=== PATIENT | female | born 1940 | race Caucasian/White ===

== ENCOUNTER 2016-09-24 09:04 | Outpatient (CLI) | payer MEDICARE, BC ==
[~2016-09-24] VITALS: Ht 154.9 cm; Wt 84.1 kg
[~2016-09-24 09:04] MED LIST: 00186-0370-20 IH; AMOXICILLIN 50500 MG PO; ASPIRIN 81M81 MG/TA2 PO; ASPIRIN E.C. 8181 MG PO; BENADRYL25 M2 PO; CALCIUM 600 PLU1 TAB PO; CALCIUM WITH VI1 TAB PO; CARDI-OMEGA1000 MG PO; CLARITIN 1010 MG/TAB PO; COREG 6.256.25 MG/TA PO; COVERA-HS180 MG PO; CRESTOR 10MG10 MG PO; DECADRON 4MG TAB4 MG PO; DEEP SEA 45 ML45 ML NS; LEVBID0.375 MG PO; NASACORT AQ N16.5 GM NS; OS-CAL 500 + D1 TAB PO; PANCREAZE 437501 ECC PO; PROAIR HFA0.09 MG/AC IH; PROMETHAZINE V473 M2 PO; REMICADE V100 MG/VIA IV; TYLENOL 500MG500 MG PO; VERELAN180 MG PO; VITAMIN D2000 I1 PO; VITAMIN D32000 I1 PO; ZANTAC 7575 MG PO; ZOLOFT 100MG100 MG PO; ZYRTEC 10MG10 MG PO; [UNRECOGNIZED DRUG - CODE] PO; [UNRECOGNIZED DRUG - OTHER] PO
[2016-09-24 10:23] VITALS: BP 189/84; PULSE 78; TEMP 97.9
[2016-09-24] MEDS ORDERED: PREDNISONE10 MG PO (11:04)
[2016-09-24] MEDS ORDERED: CATAPRES 0.1MG0.1 MG PO (11:05)
[2016-09-24] MEDS ORDERED: INCRUSE EL62.5 MCG/A IH (11:07)
[2016-09-24] MEDS ORDERED: BREO IH (11:07)
[2016-09-24] MEDS ORDERED: ALBUTEROL0.83 MG/ML IH (11:08)
== END 2016-09-24 11:45 | disposition home or self-care (01) ==
LOC: COL.VAS 09:04
DX: I87.8 Other specified disorders of veins (principal)
CPT/HCPCS: J3489

== ENCOUNTER → 2017-07-30 | Outpatient (CLI) | payer MEDICARE, BC ==
[~2017-07-30] MED LIST changes: +ALBUTEROL0.83 MG/ML IH; +BREO IH; +CATAPRES 0.1MG0.1 MG PO; +INCRUSE EL62.5 MCG/A IH; +PREDNISONE10 MG PO
== END ==
LOC: MC.RAD 11:17
DX: Z12.31 Encounter for screening mammogram for malignant neoplasm of breast (principal); Z98.890 Other specified postprocedural states

== ENCOUNTER 2018-06-16 10:50 | Outpatient (CLI) | payer MEDICARE, BC ==
[2018-06-16] MEDS ORDERED: TRELEGY ELLIPT1 EACH IH (11:30)
[2018-06-16 11:34] VITALS: BP 152/63; PULSE 71; TEMP 98.1
== END 2018-06-16 16:00 | disposition home or self-care (01) ==
LOC: EUO 10:50
DX: M81.0 Age-related osteoporosis without current pathological fracture (principal); Z79.899 Other long term (current) drug therapy
CPT/HCPCS: J3489

== ENCOUNTER → 2018-08-30 | Outpatient (CLI) | payer MEDICARE, BC ==
[~2018-08-30] MED LIST changes: +TRELEGY ELLIPT1 EACH IH
== END ==
LOC: MC.RAD 10:48
DX: Z12.31 Encounter for screening mammogram for malignant neoplasm of breast (principal)

== ENCOUNTER → 2019-01-31 | Outpatient (CLI) | payer MEDICARE, BC | LOC: COL.RAD 12:41 | DX: A31.0 Pulmonary mycobacterial infection (principal); J98.19 Other pulmonary collapse; J84.10 Pulmonary fibrosis, unspecified; Z90.49 Acquired absence of other specified parts of digestive tract ==

== ENCOUNTER 2019-03-16 06:37 | Day surgery (SDC) | payer MEDICARE, BC ==
[~2019-03-16] VITALS: Ht 154.9 cm; Wt 88.5 kg
[2019-03-16 07:37] VITALS: BP 138/69; PULSE 64; TEMP 98.1
[2019-03-16] MEDS ORDERED: TYLENOL 500MG500 MG PO (07:50)
[2019-03-16] MEDS ORDERED: TRELEGY ELLIPT1 EACH IH (08:00)
[2019-03-16] MEDS ORDERED: MASON NATURAL1000 MG PO (08:01)
[2019-03-16] MEDS ORDERED: HCTZ12.5TAB PO (08:06)
[2019-03-16] MEDS ORDERED: REFRESH PLUS 00.4 M1 OP (08:10)
[2019-03-16] MEDS ORDERED: SALINE 45 ML45 ML NS (08:12)
[2019-03-16 08:25] VITALS: BP 161/87; PULSE 70; TEMP 97.4
--- NOTE | 2019-03-16 08:25 | NUR ---
PT RETURNS TO [facility] BY CART. MONITORS APPLIED. VSS AND WNL ON ROOM AIR. FAMILY IN ROOM. PT REQUESTS COFFEE. MODERATE COUGH NOTED. CALL LIGHT IN REACH.
[2019-03-16 08:40] VITALS: BP 157/69; PULSE 64
--- NOTE | 2019-03-16 08:45 | NUR ---
PT REPORTS RELIEF IN COUGHING. DENIES NEED FOR BREATHING TX AT THIS TIME. REQUESTS PUDDING. TOLERATES COFFEE WELL. VSS AND WNL. FAMILY REMAINS IN ROOM, CALL LIGHT IN REACH.
[2019-03-16 08:55] VITALS: BP 132/67; PULSE 65
--- NOTE | 2019-03-16 08:55 | NUR ---
PT REMAINS ALERT. DENIES PAIN OR NAUSEA. IV DC'D WITH CATH TIP INTACT. VSS AND WNL. OXYGEN REMAINS ON ROOM AIR. FAMILY IN ROOM, CALL LIGHT IN REACH. FAMILY ASSISTS PT WITH DRESSING.
--- NOTE | 2019-03-16 09:10 | NUR ---
DISCHARGE INSTRUCTIONS GIVEN. PT VOICES UNDERSTANDING. PT DC TO HOME BY WHEEL CHAIR WITH SPOUSE AND DAUGHTER.
== END 2019-03-16 09:15 | disposition home or self-care (01) ==
LOC: SDCO 06:37
DX: J98.11 Atelectasis (principal); M06.9 Rheumatoid arthritis, unspecified; Z79.52 Long term (current) use of systemic steroids; A31.0 Pulmonary mycobacterial infection; Z88.1 Allergy status to other antibiotic agents; Z85.3 Personal history of malignant neoplasm of breast; E78.5 Hyperlipidemia, unspecified; F32.9 Major depressive disorder, single episode, unspecified; J32.9 Chronic sinusitis, unspecified; R91.8 Other nonspecific abnormal finding of lung field; K21.9 Gastro-esophageal reflux disease without esophagitis; J44.9 Chronic obstructive pulmonary disease, unspecified; J40 Bronchitis, not specified as acute or chronic; Z80.9 Family history of malignant neoplasm, unspecified; Z83.3 Family history of diabetes mellitus; Z90.710 Acquired absence of both cervix and uterus; Z90.49 Acquired absence of other specified parts of digestive tract; Z90.10 Acquired absence of unspecified breast and nipple; Z87.891 Personal history of nicotine dependence
CPT/HCPCS: J2704; J7120

== ENCOUNTER 2019-06-27 12:37 | Outpatient (CLI) | payer MEDICARE, BC ==
[~2019-06-27] VITALS: Ht 154.9 cm; Wt 88.0 kg
[~2019-06-27 12:37] MED LIST changes: +HCTZ12.5TAB PO; +MASON NATURAL1000 MG PO; +REFRESH PLUS 00.4 M1 OP; +SALINE 45 ML45 ML NS
[2019-06-27 13:09] VITALS: BP 141/66; PULSE 76; TEMP 98.3
== END 2019-06-27 14:10 | disposition home or self-care (01) ==
LOC: EUO 12:37
DX: M81.0 Age-related osteoporosis without current pathological fracture (principal); Z79.899 Other long term (current) drug therapy
CPT/HCPCS: J3489

== ENCOUNTER 2019-08-16 12:50 | Day surgery (SDC) | payer MEDICARE, BC ==
[2019-08-16] VITALS (7 sets, daily range): BP systolic 138–159; BP diastolic 68–89; PULSE 72–80; TEMP 98.2–98.6
[~2019-08-16] VITALS: Ht 154.9 cm; Wt 87.1 kg
[2019-08-16] MEDS ORDERED: PRILOSEC 20MG20 MG PO (13:18)
[2019-08-16] MEDS ORDERED: VENTOLIN0.09 MG IH (13:21)
--- NOTE | 2019-08-16 13:38 | NUR ---
TO RM AT 1255- CALL LIGHT IN REACH
--- NOTE | 2019-08-16 13:44 | NUR ---
DAUGHTER AND AT BEDSIDE
--- NOTE | 2019-08-16 14:45 | NUR ---
Patient arrives to [facility] via cart post-procedure. She tolerated procedure well. She is drowsy, but awake and oriented. She ambulates with standby assist to the chair in her room. Monitoring is applied for post-procedural vitals. VSS and WNL on room air. Bedside report received on patient. She denies any pain or nausea. Offered and receives ice water to drink. Family is brought to the bedside. Her call light is within reach.
--- NOTE | 2019-08-16 14:45 | NUR ---
Verbal order from Dr. Boyd that patient may discharge at 1625.
--- NOTE | 2019-08-16 15:00 | NUR ---
Patient is resting in her room comfortably. She denies any pain or nausea.
--- NOTE | 2019-08-16 15:30 | NUR ---
Patient denies any pain or nausea. She is escorted to the restroom, voids, returns to room. Steady gait. IVF saline locked.
--- NOTE | 2019-08-16 16:38 | NUR ---
Discharge criteria has been met. Discharge instructions discussed, denies any questions, and verbalizes understanding. PIV removed with catheter intact and hemostasis achieved. Patient changes to clothing independently. Escorted to exit via wheelchair. Discharged to home with ride in private vehicle at 1638.
== END 2019-08-16 16:38 | disposition home or self-care (01) ==
LOC: SDCO 12:50
DX: K31.5 Obstruction of duodenum (principal); K83.8 Other specified diseases of biliary tract; K31.89 Other diseases of stomach and duodenum; K21.0 Gastro-esophageal reflux disease with esophagitis; K58.9 Irritable bowel syndrome, unspecified; M62.89 Other specified disorders of muscle; E78.00 Pure hypercholesterolemia, unspecified; I10 Essential (primary) hypertension; J44.9 Chronic obstructive pulmonary disease, unspecified; M19.90 Unspecified osteoarthritis, unspecified site; F32.9 Major depressive disorder, single episode, unspecified; Z90.49 Acquired absence of other specified parts of digestive tract; Z85.3 Personal history of malignant neoplasm of breast; Z90.89 Acquired absence of other organs; Z90.710 Acquired absence of both cervix and uterus; Z98.51 Tubal ligation status; Z79.891 Long term (current) use of opiate analgesic; Z79.899 Other long term (current) drug therapy; Z88.1 Allergy status to other antibiotic agents; Z88.8 Allergy status to other drugs, medicaments and biological substances; Z87.891 Personal history of nicotine dependence
CPT/HCPCS: C1726; J1720; J2704; J3010; J7030; Q9967

== ENCOUNTER → 2019-09-01 | Outpatient (CLI) | payer MEDICARE, BC ==
[~2019-09-01] MED LIST changes: +PRILOSEC 20MG20 MG PO; +VENTOLIN0.09 MG IH
== END ==
LOC: MC.RAD 13:00
DX: Z12.31 Encounter for screening mammogram for malignant neoplasm of breast (principal)

== ENCOUNTER 2019-09-03 20:46 | Emergency (ER) | payer MEDICARE, BC ==
[~2019-09-03] VITALS: Ht 154.9 cm; Wt 86.8 kg
[2019-09-03 20:52] VITALS: TEMP 97.9
[2019-09-03 22:46] VITALS: BP 174/93; PULSE 73
== END 2019-09-03 22:46 | disposition home or self-care (01) ==
LOC: COL.ER 20:46
DX: S00.93XA Contusion of unspecified part of head, initial encounter (principal); I10 Essential (primary) hypertension; K58.9 Irritable bowel syndrome, unspecified; R40.2412 Glasgow coma scale score 13-15, at arrival to emergency department; Z79.51 Long term (current) use of inhaled steroids; W10.9XXA Fall (on) (from) unspecified stairs and steps, initial encounter

== ENCOUNTER → 2020-04-03 | Outpatient (CLI) | payer MEDICARE, BC | LOC: COL.RAD 12:58 | DX: K44.9 Diaphragmatic hernia without obstruction or gangrene (principal) | CPT/HCPCS: Q9967 ==

== ENCOUNTER → 2020-05-14 | Outpatient (CLI) | payer MEDICARE, BC | LOC: COL.PUL 10:34 | DX: R06.02 Shortness of breath (principal) ==

== ENCOUNTER → 2020-10-19 | Outpatient (CLI) | payer MEDICARE, BC | LOC: COL.PUL 09:46 | DX: R06.02 Shortness of breath (principal); Z87.891 Personal history of nicotine dependence ==

== ENCOUNTER → 2021-01-10 | Outpatient (CLI) | payer MEDICARE, BC ==
[~2021-01-10] MED LIST changes: +FERROUS SU325 MG/TAB PO; +FLOVENT 44MCG I13 GM; +IPRATROPIUM BROM3 M1 IH; +PREDNISONE20 MG PO; +PRINIVIL5 MG PO; +SINGULAIR 110 MG/TAB PO; +TESSALON P100 MG/CAP PO; +THEO-24400 MG PO
== END ==
LOC: COL.PUL 12:53
DX: R06.02 Shortness of breath (principal); Z87.891 Personal history of nicotine dependence

== ENCOUNTER 2021-03-30 09:54 | Inpatient (IN) | payer MEDICARE, BC ==
[2021-03-30] VITALS (45 sets, daily range): BP systolic 126–127; BP diastolic 63–74; PULSE 118–124; TEMP 99.8–100.3; O2SAT 87–97
[~2021-03-30] VITALS: Ht 154.9 cm; Wt 85.8 kg
[~2021-03-30 09:54] MED LIST changes: -FERROUS SU325 MG/TAB PO; -FLOVENT 44MCG I13 GM; -IPRATROPIUM BROM3 M1 IH; -PREDNISONE20 MG PO; -PRINIVIL5 MG PO; -SINGULAIR 110 MG/TAB PO; -TESSALON P100 MG/CAP PO; -THEO-24400 MG PO
[2021-03-30 10:58] LABS: HEMATOCRIT 39.7 % (37.0-47.0); HEMOGLOBIN 12.1 g/dl (12.5-16.0); MEAN CELL VOLUME 81 fl (80.0-100.0); MEAN CORPUSCULAR HEMOGLOBIN 25 pg (27.0-31.0); MEAN CORPUSCULAR HGB CONC 31 g/dl (33.0-37.0); MEAN PLATELET VOLUME 9.7 fl (7.4-10.4); PLATELET COUNT 228 K/mm3 (130-400); RED BLOOD COUNT 4.89 M/mm3 (4.10-5.30); REDCELL DISTRIBUTION WIDTH-CV 18.5 % (11.5-14.5)
[2021-03-30 11:06] LABS: ALBUMIN 3.3 gm/dL (3.5-5.0); BILIRUBIN,TOTAL 0.9 mg/dL (0.0-1.0); CALCIUM 9.1 mg/dL (8.4-10.2); CREATININE, serum 1.66 (0.52-1.25); POTASSIUM 3.1 mmol/L (3.4-5.0)
[2021-03-30 11:18] LABS: TROPONIN-I 0.051 ng/mL (0.000-0.035)
[2021-03-30 11:40] LABS: BAND 5 % (0-10); EOSINOPHIL 1 % (0-4); LYMPHOCYTE 12 % (20.0-51.0); NEUTROPHILS 76 % (42.0-75.2)
[2021-03-30 11:44] LABS: HYPOCHROMIA 3+
[2021-03-30 11:45] LABS: ANISOCYTOSIS 2+; PLATELET ESTIMATE NORMAL (NORMAL)
--- NOTE | 2021-03-30 16:42 | NUR ---
Arrived to the unit from the ER. Patient alert and oriented but appears very fatigued. States she still feels very weak with some dizziness. Nausea has resolved. BP stable HR tachy in the 120's. Attached to all monitors and assessment completed at this time. No further episodes of diarrhea or vomiting since ER.
[2021-03-30 16:44] LABS: MEAN CORPUSCULAR HGB CONC 28 g/dl (33.0-37.0); MEAN PLATELET VOLUME 10.3 fl (7.4-10.4); RED BLOOD COUNT 2.25 M/mm3 (4.10-5.30); REDCELL DISTRIBUTION WIDTH-CV 18.5 % (11.5-14.5)
[2021-03-30 16:50] LABS: HEMATOCRIT 20.2 % (37.0-47.0); HEMOGLOBIN 5.6 g/dl (12.5-16.0); MEAN CELL VOLUME 90 fl (80.0-100.0); MEAN CORPUSCULAR HEMOGLOBIN 25 pg (27.0-31.0)
[2021-03-30 16:51] LABS: PLATELET COUNT 99 K/mm3 (130-400)
[2021-03-30] MEDS ORDERED: FLOVENT 44MCG I13 GM (17:29)
--- NOTE | 2021-03-30 17:45 | NUR ---
Hospitalist notified of difficulty obtaining blood draws. Last blood draw results were suspicious for dilutional errors. Attempting to re-draw now. Hospitalist will notify the numerical control machine tool operator surgeon for a placement of a central line.
[2021-03-30 17:59] LABS: ALBUMIN 2.6 gm/dL (3.5-5.0); BILIRUBIN,TOTAL 0.7 mg/dL (0.0-1.0); CALCIUM 7.5 mg/dL (8.4-10.2); CREATININE, serum 1.31 (0.52-1.25); POTASSIUM 3.4 mmol/L (3.4-5.0)
[2021-03-30 18:15] LABS: BAND 8 % (0-10); BASOPHIL 1 % (0-2); EOSINOPHIL 2 % (0-4); LYMPHOCYTE 11 % (20.0-51.0); METAMYELOCYTE 1 % (0-0); NEUTROPHILS 74 % (42.0-75.2)
[2021-03-30 18:16] LABS: PLATELET ESTIMATE DECREASED (NORMAL)
[2021-03-30 18:17] LABS: ANISOCYTOSIS 1+
[2021-03-30 18:18] LABS: HYPOCHROMIA 3+
[2021-03-30 18:19] LABS: BURR CELLS 1+
[2021-03-30] MEDS ORDERED: THEO-24400 MG PO (19:07)
[2021-03-30 19:23] LABS: MEAN CORPUSCULAR HGB CONC 30 g/dl (33.0-37.0); MEAN PLATELET VOLUME 9.9 fl (7.4-10.4); RED BLOOD COUNT 4.32 M/mm3 (4.10-5.30); REDCELL DISTRIBUTION WIDTH-CV 18.7 % (11.5-14.5)
[2021-03-30 19:28] LABS: ALBUMIN 3.3 gm/dL (3.5-5.0); BILIRUBIN,TOTAL 0.9 mg/dL (0.0-1.0); CALCIUM 9.1 mg/dL (8.4-10.2); CREATININE, serum 1.66 (0.52-1.25); HEMATOCRIT 35.6 % (37.0-47.0); HEMOGLOBIN 10.6 g/dl (12.5-16.0); MEAN CELL VOLUME 82 fl (80.0-100.0); MEAN CORPUSCULAR HEMOGLOBIN 25 pg (27.0-31.0); POTASSIUM 3.1 mmol/L (3.4-5.0)
[2021-03-30 19:29] LABS: PLATELET COUNT 209 K/mm3 (130-400)
[2021-03-30] MEDS ORDERED: TESSALON P100 MG/CAP PO (19:29)
[2021-03-30 20:07] LABS: ANISOCYTOSIS 1+; BAND 31 % (0-10); LYMPHOCYTE 10 % (20.0-51.0); NEUTROPHILS 56 % (42.0-75.2); OVALOCYTES 1+; PLATELET ESTIMATE NORMAL (NORMAL); POIKILOCYTOSIS 1+
[2021-03-30 20:53] LABS: PH 5 (5-8); URINE APPEARANCE Cloudy; URINE BACTERIA Many /hpf; URINE BILIRUBIN Negative (NEGATIVE); URINE BLOOD 1+ (NEGATIVE); URINE COLOR Yellow; URINE GLUCOSE Negative (NEGATIVE); URINE KETONE Negative (NEGATIVE); URINE LEUKOCYTE ESTERASE 2+ (NEGATIVE); URINE NITRATE Negative (NEGATIVE); URINE PROTEIN(semi-quant) 1+ (NEGATIVE); URINE UROBILINOGEN Negative (NEGATIVE); URINE WBC 20-50 /hpf
[2021-03-30 21:23] LABS: COLLECTION METHOD CLEAN CATCH
[2021-03-31] VITALS (15 sets, daily range): BP systolic 98–129; BP diastolic 41–64; PULSE 62–105; TEMP 97.7–99.5; O2SAT 94–98
--- NOTE | 2021-03-31 05:50 | NUR ---
AT 2330 PATIENT NOTED TO BE UNABLE TO MAINTAIN OXYGEN SAT ABOVE 90% ON CURRENT OXYGEN THERAPY DUE TO MOUTH BREATHING WHILE ASLEEP PATIENT PLACED ON OXYMASK AND TITRATED TO 9LPM TO KEEP SATS ABOVE 90%, AT THIS TIME TURNED O2 DOWN TO 8LPM VIA OXYMASK PATIENT MAINTAINING SATS IN MID 90'S RANGE WILL CONTINUE TO MONITOR
--- NOTE | 2021-03-31 08:15 | NUR ---
PT is awake this am denies pain or shortness of breath. PT does state she feels dizzy. PT is maintaining SPO2 at 95% on 6L OM. PT takes oral medications without problem. PTs bedding is straightened and PT is repostioned with help of 2 RNs. After repositioning PT feels that she having increased work of breathing. SPO2 is unchanbed respirations are sitting at 20 a minute. PT is able to calm her breathing.
--- NOTE | 2021-03-31 09:02 | NUR ---
PT uses call light stating she would like to be sat up more as she is having a hard time breathing. PTs RR 28. SPO2 95%. Dr. Phelps and RT to be consulted on this issue.
--- NOTE | 2021-03-31 09:05 | NUR ---
RT suggests Q6hr duo neb treatments. Dr. Phelps notified and agrees.
--- NOTE | 2021-03-31 09:12 | NUR ---
Jantet, into see patient to niall perez. SPO2 95% RR 22 HR 88 at this time.
--- NOTE | 2021-03-31 18:00 | NUR ---
Patient admitted to the floor from ICU for SOB and weakness. Report recieved from LUDIN Stern. Upon initial assessment, normal S1 and S2 sounds present, radial and pedal pulses +2 bilaterally, patient tired but oriented. Bowel sounds present in all four quadrants. Upon ascultation lung sounds were diminished. Patient currently requiring 6L of O2 via nasal cannula. Per report, patient had not voided all shift. Bladder scan done, [address] Phelps notified, order for straight cath placed. Straight cath preformed, 600 ML of urine drained. Blood pressures soft, Dr. Phelps notified and parameters were placed on blood pressure medication. Patient denies any pain, discomfort, or futher needs at this time. Will continue to monitor. Call light in reach. Fall precautions in place.
[2021-04-01 03:37] VITALS: BP 145/60; PULSE 80; TEMP 98
[2021-04-01 08:36] LABS: MEAN CELL VOLUME 80 fl (80.0-100.0); MEAN CORPUSCULAR HGB CONC 31 g/dl (33.0-37.0); MEAN PLATELET VOLUME 9.8 fl (7.4-10.4); PLATELET COUNT 198 K/mm3 (130-400); RED BLOOD COUNT 3.95 M/mm3 (4.10-5.30); REDCELL DISTRIBUTION WIDTH-CV 18.7 % (11.5-14.5)
[2021-04-01 08:39] LABS: HEMATOCRIT 31.5 % (37.0-47.0); HEMOGLOBIN 9.6 g/dl (12.5-16.0); MEAN CORPUSCULAR HEMOGLOBIN 24 pg (27.0-31.0)
--- NOTE | 2021-04-01 08:50 | NUR ---
Shift assessment complete. Pt assisted off of bed ley, voided 250 mls at this time. Breathing shallow and labored at rest, reports shortness of air, worsened by movement. Sats 92% on 5 lpm HFNC. Lungs coarse to auscultation. Heart RRR. A&Ox4. INTs to left forearm and left AC w/o s/s complication. Left subclavian line w/o s/s complication, flushes well and good blood return noted. Pt denies needs at this time. Call light in reach.
[2021-04-01 08:52] LABS: ALBUMIN 2.6 gm/dL (3.5-5.0); BILIRUBIN,TOTAL 0.3 mg/dL (0.0-1.0); CALCIUM 8.6 mg/dL (8.4-10.2); CREATININE, serum 1.04 (0.52-1.25); POTASSIUM 3.3 mmol/L (3.4-5.0); TOTAL PROTEIN 5.3 gm/dL (6.4-8.2)
[2021-04-01 08:55] LABS: BAND 18 % (0-10); BASOPHIL 1 % (0-2); EOSINOPHIL 2 % (0-4); LYMPHOCYTE 2 % (20.0-51.0); METAMYELOCYTE 1 % (0-0); NEUTROPHILS 74 % (42.0-75.2); OVALOCYTES 1+; PLATELET ESTIMATE NORMAL (NORMAL); SCHISTOCYTES 1+
[2021-04-01 09:00] VITALS: BP 145/66; PULSE 80; TEMP 98.7
[2021-04-01 12:19] VITALS: BP 137/64; PULSE 83; TEMP 99
[2021-04-01 13:02] LABS: RETIC # 0.03 M/mm3 (0.02-0.16); RETIC % 0.7 % (0.5-3.52)
[2021-04-01 14:17] LABS: IRON,SERUM < 10 ug/dL (35-150)
[2021-04-01 14:26] LABS: TOTAL IRON BINDING CAPACITY 209 ug/dL (265-497)
--- NOTE | 2021-04-01 15:19 | NUR ---
Pt off unit at this time for abdomen/pelvis CT.
--- NOTE | 2021-04-01 15:40 | NUR ---
SW met with the patient to discuss discharge plan. The patient lives in [place] with her , Unruly. She reports that Unruly has early states of dementia and that she is his caregiver. She reports that his children are helping taking care of him while she is here. She reports needing assistance with with ADLs and has a cane and is on continuous oxygen at home and is normally on 2 liters. She could not recall what DME company she gets the oxygen from. She states that her daughter and son-in-law help her with her ADLs. She states that she has home health services and she believes she gets them from [facility] out of [place]. SW contacted Kameron at [facility] and she reports that they have never had her. The patient's PCP is Dr. Guru Lock and she receives her medications from [facility] in [place]. The patient does not have a DPOA-HC in EMR, but she states that she does have one completed and believes she designated one of her daughters. OT notified ERIN that the patient needed max assist to transfer to the bedside commode and she would recommend post-acut rehab and that she could be a good candidate for IPR. SW discussed their recommendation with the patient. The patient reports that she would be interested in IPR. The patient's daughter, Elma (ph#[phone]), then entered the patient's room. SW reviewed the above information with Elma. Elma reports that she has a copy of the patient's DPOA-HC and that she and her sister, Pastora, are the patient's DPOA-HC. SW requested that she bring a copy up to the hospital. The patient reports that she has four children: Elma, Pastora, Kofi, and Kylie. SW discussed therapy's recommendation. Elma reports that the patient has only been here a few days and her weakness is not out of the ordinary. She reports that she needs to speak to the rest of her sisters. She is open to IPR, but reports that her and her sisters had discussed that one of them would stay with the patient upon discharge and they would rotate staying with her. She states that she would like to talk to her sisters about what is being recommended, but was open for SW to send the referral to IPR. SW consulted IPR Director, Cookie. Awaiting screen. ERIN also attempted to contact Nithya, social sciences professor, at Dr. Lock's office to inquire if they have a copy of the patient's DPOA-HC. SW left her a voicemail. *Discharge plan: IPR vs home with family assist*
[2021-04-01 17:13] VITALS: BP 157/77; PULSE 83; TEMP 99.2
--- NOTE | 2021-04-01 17:15 | NUR ---
Pt's daughter brought in home meds, including creon. Pt reported that she only uses creon at home PRN when she has IBS flair-ups. Stated she would not take it here and asked her daughter to take it back home.
[2021-04-01] MEDS ORDERED: [UNRECOGNIZED DRUG - CODE] PO (17:19)
[2021-04-01 17:26] LABS: MEAN CELL VOLUME 79 fl (80.0-100.0); MEAN CORPUSCULAR HGB CONC 30 g/dl (33.0-37.0); MEAN PLATELET VOLUME 9.8 fl (7.4-10.4); PLATELET COUNT 196 K/mm3 (130-400); RED BLOOD COUNT 3.86 M/mm3 (4.10-5.30); REDCELL DISTRIBUTION WIDTH-CV 18.5 % (11.5-14.5)
[2021-04-01 17:28] LABS: HEMATOCRIT 30.6 % (37.0-47.0); HEMOGLOBIN 9.3 g/dl (12.5-16.0); MEAN CORPUSCULAR HEMOGLOBIN 24 pg (27.0-31.0)
[2021-04-01 20:21] VITALS: BP 148/71; PULSE 90; TEMP 100.1
[2021-04-01 22:56] LABS: FOLATE (FOLIC ACID) 11.2 ng/mL (2.0-20.0)
[2021-04-01 23:07] VITALS: BP 169/80; PULSE 87; TEMP 99.4
[2021-04-01 23:45] LABS: MEAN CELL VOLUME 79 fl (80.0-100.0); MEAN CORPUSCULAR HEMOGLOBIN 24 pg (27.0-31.0); MEAN CORPUSCULAR HGB CONC 31 g/dl (33.0-37.0); MEAN PLATELET VOLUME 9.6 fl (7.4-10.4); PLATELET COUNT 213 K/mm3 (130-400); RED BLOOD COUNT 4.11 M/mm3 (4.10-5.30); REDCELL DISTRIBUTION WIDTH-CV 18.6 % (11.5-14.5)
[2021-04-01 23:46] LABS: HEMATOCRIT 32.6 % (37.0-47.0)
[2021-04-02 04:07] VITALS: BP 156/83; PULSE 88; TEMP 97.7
--- NOTE | 2021-04-02 05:37 | NUR ---
PT SLEPT MAJORITY OF THE NIGHT, PT USED THE CALL LIGHT TWICE TO AMBULATE TO COMMODE. PT WAS ABLE TO URINATE BOTH TIME, INPUT/OUTPUT RECORDED. PT DENIES PAIN,N,V,D. PT EXPRESSES NO ADDITOINAL NEEDS AT THIS TIME. CALL LIGHT WITHIN REACH.
--- NOTE | 2021-04-02 06:45 | NUR ---
Report received from maintenance supervisor 2nd shift RN. Pt resting in bed upon entry. Reports needing to use restroom. Assisted up to BSC using walker and voided 200 mls. Incontinent of urine in bed as well, full bed change and bed bath done. Pt assisted back into bed. Call light in reach and bed alarm on.
[2021-04-02 07:32] LABS: MEAN CELL VOLUME 82 fl (80.0-100.0); MEAN CORPUSCULAR HGB CONC 30 g/dl (33.0-37.0); PLATELET COUNT 187 K/mm3 (130-400); RED BLOOD COUNT 3.61 M/mm3 (4.10-5.30); REDCELL DISTRIBUTION WIDTH-CV 18.6 % (11.5-14.5)
[2021-04-02 07:34] LABS: HEMATOCRIT 29.7 % (37.0-47.0); HEMOGLOBIN 8.9 g/dl (12.5-16.0); MEAN CORPUSCULAR HEMOGLOBIN 25 pg (27.0-31.0)
[2021-04-02 07:47] LABS: CALCIUM 8.6 mg/dL (8.4-10.2); CREATININE, serum 0.76 (0.52-1.25); POTASSIUM 3.1 mmol/L (3.4-5.0)
[2021-04-02 07:56] LABS: BAND 20 % (0-10); BASOPHIL 1 % (0-2); EOSINOPHIL 2 % (0-4); LYMPHOCYTE 13 % (20.0-51.0); METAMYELOCYTE 2 % (0-0); NEUTROPHILS 56 % (42.0-75.2); OVALOCYTES 1+; PLATELET ESTIMATE NORMAL (NORMAL); SCHISTOCYTES 1+
[2021-04-02 08:00] VITALS: BP 153/75; PULSE 84; TEMP 100.1
--- NOTE | 2021-04-02 08:15 | NUR ---
Shift assessment complete. Pt resting in bed. Reports continued SOA this morning. Breathing shallow and labored at rest. O2 at 4 lpm NC w/sats stable. Lungs w/crackles and expiratory wheezes to auscultation. Heart RRR. A&Ox4. Denies pain or other concerns this AM. Call light in reach and bed alarm on.
--- NOTE | 2021-04-02 09:11 | NUR ---
Pt assisted x1 assist w/walker to recliner to eat breakfast.
--- NOTE | 2021-04-02 09:51 | NUR ---
SW received the patient's DPOA-HC, via fax, from her PCP's office. SW placed the document in the patient's chart. The patient's DPOA-HC is her , Ernesto. The alternate is her daughter, Elma.
--- NOTE | 2021-04-02 11:00 | NUR ---
Initial visit; Patient thanked Scale Adjuster for offering God's blessings and prayer. Scale Adjuster wished patient well and will follow up while patient is hospitalized.
[2021-04-02 12:17] VITALS: BP 119/58; PULSE 74; TEMP 100.5
[2021-04-02 14:39] LABS: HEMATOCRIT 29.9 % (37.0-47.0); HEMOGLOBIN 9.1 g/dl (12.5-16.0)
--- NOTE | 2021-04-02 15:54 | NUR ---
ERIN collaborated with the clinical team. The patient may be here another couple of days. ERIN updated IPR Director, Cookie.
[2021-04-02 17:00] VITALS: BP 138/66; PULSE 83; TEMP 98.1
--- NOTE | 2021-04-02 18:35 | NUR ---
Pt rested in bed and slept on and off for most of day. Did get up to use BSC 3 times today and sit in recliner for 2 hours this morning. Up to commode at 1800 and was unable to void much, bladder scan showed 350 mls. Pt without good PO intake of fluids today due to sleeping much of day. Sitting up eating dinner and drinking water at this time. Will try to void again when finished eating and repeat bladder scan if still unable to void. No BMs this shift. Report given to manufacturing shift supervisor RN.
[2021-04-02 19:04] LABS: HEMATOCRIT 30.9 % (37.0-47.0); HEMOGLOBIN 9.2 g/dl (12.5-16.0)
[2021-04-02 19:21] VITALS: BP 120/59; PULSE 79; TEMP 99.5
[2021-04-03] VITALS (7 sets, daily range): BP systolic 129–154; BP diastolic 63–75; PULSE 70–93; TEMP 97.5–100
--- NOTE | 2021-04-03 06:13 | NUR ---
PT SLEPT THROUGH OUT NIGHT, 02 4L NC SATURATING 90 AND ABOVE. PT DENIES PAIN,N,V,D, CONSTIPATION. PT'S ADEQUATE URINE OUTPUT RECORDED; NO NECESSARY INTERVENTIONS THIS SHIFT.ALL MEDICATIONS ADMINISTERED ORDERED. PT EXPRESSES NO ADDITIONAL NEEDS AT THIS TIME. CALL LIGHT WITHIN REACH.
[2021-04-03 06:49] LABS: MEAN CELL VOLUME 80 fl (80.0-100.0); MEAN CORPUSCULAR HGB CONC 30 g/dl (33.0-37.0); MEAN PLATELET VOLUME 9.8 fl (7.4-10.4); PLATELET COUNT 212 K/mm3 (130-400); RED BLOOD COUNT 3.96 M/mm3 (4.10-5.30); REDCELL DISTRIBUTION WIDTH-CV 18.4 % (11.5-14.5)
[2021-04-03 06:50] LABS: HEMATOCRIT 31.8 % (37.0-47.0); HEMOGLOBIN 9.5 g/dl (12.5-16.0); MEAN CORPUSCULAR HEMOGLOBIN 24 pg (27.0-31.0)
[2021-04-03 06:58] LABS: ALBUMIN 2.8 gm/dL (3.5-5.0); CALCIUM 8.9 mg/dL (8.4-10.2); CREATININE, serum 0.73 (0.52-1.25); PHOSPHOROUS 3.5 mg/dL (2.5-4.5); POTASSIUM 3.5 mmol/L (3.4-5.0)
--- NOTE | 2021-04-03 07:26 | NUR ---
bedside shift report received from LUDIN Mcfarland
[2021-04-03 07:40] LABS: BAND 11 % (0-10); EOSINOPHIL 2 % (0-4); LYMPHOCYTE 17 % (20.0-51.0); METAMYELOCYTE 4 % (0-0); NEUTROPHILS 58 % (42.0-75.2); OVALOCYTES 1+; SCHISTOCYTES 1+
[2021-04-03 07:41] LABS: PLATELET ESTIMATE NORMAL (NORMAL)
--- NOTE | 2021-04-03 08:20 | NUR ---
up to bathroom with assitance of SYSTEMS MECHANIC and was able to void but was unmeasured, is now back in bed, breakfast ordered
--- NOTE | 2021-04-03 08:45 | NUR ---
repositioned up in bed for breakfast, she states she thinks she is feeling a little better today, will have breakfast now
--- NOTE | 2021-04-03 09:30 | NUR ---
only ate small amount of breakfast, full assessment completed, see interventions for further info, assisted up to bathroom and voided approx 200 clear yellow urine, was weak and was unable to get up from toilet with 1 assist, with 2 assist was able to get up and ambulate back to bed,
--- NOTE | 2021-04-03 10:10 | NUR ---
Dr Bowling and care team in to see patient
--- NOTE | 2021-04-03 10:52 | NUR ---
physical therapy in and worked with patient, she c/o milk dizziness when she first stood, sat on side of bed and when attempted again dizziness was gone, ambulated to other side of bed and sitting up in chair
--- NOTE | 2021-04-03 12:02 | NUR ---
is tired and ready to go back to bed, assisted out of chair and into bed
--- NOTE | 2021-04-03 13:00 | NUR ---
assisted up to bathroom, c/o some right sided pain acroschest, medicated with tylenol 650mg po per her request, sitting up in bed for lunch
--- NOTE | 2021-04-03 14:15 | NUR ---
resting in bed visiting with her daughter, states relief of pain from t ylenol
--- NOTE | 2021-04-03 16:40 | NUR ---
appears to be sleeping, in bed with lights off, eyes closed, resp quiet and easy
--- NOTE | 2021-04-03 17:22 | NUR ---
daughter at bedside and will assist her with ordering supper
[2021-04-04] VITALS (13 sets, daily range): BP systolic 106–157; BP diastolic 58–84; PULSE 61–85; TEMP 97.7–98.4
--- NOTE | 2021-04-04 10:37 | NUR ---
Follow-up visit; Patient thanked Disc Sander for visiting her again, visiting and offering prayer and God's blessings. Patient likes visits, Disc Sander will follow up while Pat is a patient here.
--- NOTE | 2021-04-04 14:46 | NUR ---
ERIN staffed with the PA. The earliest the patient could d/c is tomorrow, 04/05. ERIN met with the patient and her daughter, Elma, to update. Elma reports that IPR Director, Cookie, was able to come and talk to her and the patient. She states that they are interested in pursuing IPR. ERIN updated IPR Director, Cookie.
[2021-04-05 00:51] VITALS: BP 130/81; PULSE 78; TEMP 97.7
[2021-04-05 03:24] VITALS: BP 147/64; PULSE 74; TEMP 98.1
[2021-04-05 07:09] LABS: MEAN CELL VOLUME 79 fl (80.0-100.0); MEAN CORPUSCULAR HGB CONC 31 g/dl (33.0-37.0); MEAN PLATELET VOLUME 10.6 fl (7.4-10.4); PLATELET COUNT 240 K/mm3 (130-400); RED BLOOD COUNT 3.66 M/mm3 (4.10-5.30); REDCELL DISTRIBUTION WIDTH-CV 17.6 % (11.5-14.5)
[2021-04-05 07:12] LABS: HEMATOCRIT 28.8 % (37.0-47.0); HEMOGLOBIN 8.8 g/dl (12.5-16.0); MEAN CORPUSCULAR HEMOGLOBIN 24 pg (27.0-31.0)
[2021-04-05 07:19] LABS: CALCIUM 8.1 mg/dL (8.4-10.2); CREATININE, serum 0.68 (0.52-1.25); POTASSIUM 3.4 mmol/L (3.4-5.0)
[2021-04-05 07:46] VITALS: BP 148/65; PULSE 77; TEMP 98.3
[2021-04-05 08:16] LABS: BAND 2 % (0-10); LYMPHOCYTE 5 % (20.0-51.0); METAMYELOCYTE 2 % (0-0); NEUTROPHILS 91 % (42.0-75.2); OVALOCYTES 1+
[2021-04-05 08:17] LABS: SCHISTOCYTES 1+; TEAR DROP CELLS 1+
[2021-04-05] MEDS ORDERED: IPRATROPIUM BROM3 M1 IH (09:30)
[2021-04-05] MEDS ORDERED: FERROUS SU325 MG/TAB PO (09:32)
[2021-04-05] MEDS ORDERED: PREDNISONE20 MG PO (09:42)
--- NOTE | 2021-04-05 09:45 | NUR ---
Cookie, IPR Director, reports that they are able to accept the patient today. The patient is to discharge today, 04/05, to [facility]. ERIN contacted and updated the patient's daughter, Elma. Elma was in agreement to the plan. No additional needs at this time.
[2021-04-05 11:31] VITALS: BP 131/82; PULSE 71; TEMP 98.3
--- NOTE | 2021-04-05 13:30 | NUR ---
0700 PT RECEIVED RESTING IN BED. NO S/S OF DISTRESS NOTICED. CALL-LIGHT IN REACH. BED ALARM ON. OXYGEN ON AT 2L. 0900 MEDICATIONS ADMINISTERED ORDERED. PT AAOX3. PT DENIES HAVING PAIN. PT ATE HER MEAL. NO COMPLAINTS AT THIS TIME. COMFORT MEASURES IN PLACE. WILL CONTINUE TO MONITOR. 1000 PT HAD A BATH WITH CORRESPONDENCE DICTATOR. 1100 PROVIDER AT THE BEDSIDE TO SEE PT. PLAN TO DISCHARGE PT TO INPATIENT REHAB TODAY. 1200 PT ATE OK MEAL. DAUGHTER AT THE BEDSIDE. WILL CONTINUE TO MONIOTR.
--- NOTE | 2021-04-05 14:05 | NUR ---
PT BEING DISCHARGE AT THIS TIME. REPORT CALLED TO [facility] NURSE RODRIGUEZ. IV ACCESS DISCONTINUED. PT DAUGHTER AT THE BEDSIDE. PT TOOK ALL HER BELONGINGS INCLUDING HER DENTURES.
[2021-04-05] MEDS ORDERED: SINGULAIR 110 MG/TAB PO (21:07)
== END 2021-04-05 14:27 | DRG 871 ==
LOC: COL.ER 09:54 → ICU 14:49 → MEDICAL 03-31 16:29
PROVIDERS: Emergency Medicine; Internal Medicine; Nurse Practitioner Primary Care; Physician Assistant
PROC: 05H633Z Insertion of Infusion Device into Left Subclavian Vein, Percutaneous Approach (ICD-10-PCS; principal; 2021-03-30)
DX: A41.89 Other specified sepsis (principal); J15.9 Unspecified bacterial pneumonia; J44.0 Chronic obstructive pulmonary disease with (acute) lower respiratory infection; K58.9 Irritable bowel syndrome, unspecified; J96.11 Chronic respiratory failure with hypoxia; N17.9 Acute kidney failure, unspecified; I10 Essential (primary) hypertension; F32.9 Major depressive disorder, single episode, unspecified; E78.5 Hyperlipidemia, unspecified; M06.9 Rheumatoid arthritis, unspecified; M19.90 Unspecified osteoarthritis, unspecified site; K21.9 Gastro-esophageal reflux disease without esophagitis; D64.9 Anemia, unspecified; G47.33 Obstructive sleep apnea (adult) (pediatric); E66.9 Obesity, unspecified; R65.20 Severe sepsis without septic shock; E87.6 Hypokalemia; Z20.822 Contact with and (suspected) exposure to COVID-19; Z98.51 Tubal ligation status; Z90.49 Acquired absence of other specified parts of digestive tract; Z85.3 Personal history of malignant neoplasm of breast; Z87.891 Personal history of nicotine dependence; Z68.31 Body mass index [BMI] 31.0-31.9, adult; Z90.710 Acquired absence of both cervix and uterus
CPT/HCPCS: 99223-AI; 99232-AI; 99233-AI; 99239; C9113; J0696; J1644; J1650; J1940; J2405; J2543; J2920; J3480; J7030; Q9967

== ENCOUNTER 2021-04-05 10:41 | Inpatient (IN) | payer MEDICARE, BC ==
[~2021-04-05] VITALS: Ht 154.9 cm; Wt 79.8 kg
[~2021-04-05 10:41] MED LIST changes: +FERROUS SU325 MG/TAB PO; +FLOVENT 44MCG I13 GM; +IPRATROPIUM BROM3 M1 IH; +PREDNISONE20 MG PO; +TESSALON P100 MG/CAP PO; +THEO-24400 MG PO
--- NOTE | 2021-04-05 14:00 | NUR ---
Received report from Irwin in Medical unit. Patient is an 80 Year old female that is a full code and is A&Ox4. She is on 2 L NC. Takes pills whole with water. She is a SBA with a walker. Continent of Bowel and Bladder. She is being admitted for Debility. Hx: Right LL Community acquired bacterial pneumonia, MART, Anemia, COpD, Depression, HTN, Hypokalemia, IBS, Obesity and A-Fib. She has some bruising to her bilateral arms due to prior blood draws.
[2021-04-05 18:00] VITALS: BP 146/68; PULSE 85; TEMP 98.6
--- NOTE | 2021-04-05 19:45 | NUR ---
Patient arrived to room #336 and attended PT and OT this shift. Patient was oriented to IPR by ELZA/Sharif. Patient denied any questions and denied any pain this afternoon. She is currently resting in bed, call light in reach and bed alarm set. Will continue to monitor.
--- NOTE | 2021-04-05 21:00 | NUR ---
RESTING IN BED. O2 2LNC. NO RESP DISTRESS. CALL LIGHT IN REACH. BED ALARM SET.
[2021-04-05] MEDS ORDERED: SINGULAIR 110 MG/TAB PO (21:07)
[2021-04-06 04:00] VITALS: BP 154/62; PULSE 73; TEMP 98.7
--- NOTE | 2021-04-06 08:00 | NUR ---
Patient sitting up in the recliner eating breakfast. A&Ox4. VSS 2.5L NC O2, no reported SOB. Reports discomfort r/t arthritis. Pain medication given as requested and before start of therapy. Right arm restricted. Patient independent with eating. No further needs expressed. Call light within reach. Chair alarm on
[2021-04-06 16:41] VITALS: BP 137/75; PULSE 88; TEMP 97.8
--- NOTE | 2021-04-06 17:35 | NUR ---
Patient worked with therapy and tolerated well. Ambulated with a standby assist with gait belt and walker. VSS 2.5L NC O2, no reported SOB. Patient thinks that cold water makes her cough and that she could be aspirating. Dr. Acuna notified and aware. Patient instructed to drink room temperature fluids. Patient verbalized an understanding. Patient reporting pain r/t arthritis, pain medication given when requested. No further needs expressed. Call light within reach
--- NOTE | 2021-04-06 20:37 | NUR ---
DAUGHTER HER EARLIER. ASSISTED TO BR WITH WALKER. O2 3L NC. NO RESP DISTRESS. SEE MAR FOR TYLENOL GIVEN FOR GEN ACHES.
--- NOTE | 2021-04-07 03:11 | NUR ---
TESSALON PEARLES GIVEN FOR DRY COUGH.
[2021-04-07 04:46] VITALS: BP 156/70; PULSE 69; TEMP 98.1
--- NOTE | 2021-04-07 07:21 | NUR ---
Patient was SBA with ambulation, sitting to standing, transferring to toilet off and on and independent with grooming. Patient denies pain at this time.
--- NOTE | 2021-04-07 11:03 | NUR ---
SW completed intake with patient. Patient states that she lives in [place] with Unruly [phone]. Patient provides that she does utilize a cane, and is independent with ADLs. Patient states that her PCP is Dr. Lock and her pharmacy is [facility]. Patient also provides that she is able to afford her medications. Patient provides that her daughter Elma is her DPOA- [phone]. Patient states that she was informed that there would be a meeting held with clinical team this week to discuss DC plan and resources. SW will continue to follow. DC plan: home with spouse
--- NOTE | 2021-04-07 15:17 | NUR ---
Patient's daughter stopped by to see patient. Patient did all her own grooming this morning and was a set up for dressing up and lower self. She was independent with putting her slippers on. She is currently resting in recliner, call light in reach and alarm set. Will continue to monitor.
[2021-04-07 16:08] VITALS: BP 135/57; PULSE 85; TEMP 97.7
--- NOTE | 2021-04-07 21:00 | NUR ---
PT RESTING IN BED. HAS LOW BACK MUSCLE PAIN. SEE MAR FOR TYLENOL GIVEN. NO S/S UTI. O2 2L NC CONTINUOUS. AMB WITH WALKER TO BR. PROVIDES SELF CARE WITH HYGEINE. TO BED. CALL LIGHT IN REACH. BED ALARM SET.
[2021-04-08 05:14] VITALS: BP 174/73; PULSE 71; TEMP 97.7
[2021-04-08 06:59] LABS: MEAN CELL VOLUME 80 fl (80.0-100.0); MEAN CORPUSCULAR HGB CONC 30 g/dl (33.0-37.0); MEAN PLATELET VOLUME 9.7 fl (7.4-10.4); PLATELET COUNT 422 K/mm3 (130-400); REDCELL DISTRIBUTION WIDTH-CV 17.7 % (11.5-14.5)
[2021-04-08 07:04] LABS: HEMATOCRIT 32.9 % (37.0-47.0); HEMOGLOBIN 9.9 g/dl (12.5-16.0); MEAN CORPUSCULAR HEMOGLOBIN 24 pg (27.0-31.0)
[2021-04-08 07:08] LABS: CALCIUM 8.2 mg/dL (8.4-10.2); CREATININE, serum 0.65 (0.52-1.25); MAGNESIUM 1.9 mg/dL (1.6-2.3)
[2021-04-08 08:06] LABS: BAND 2 % (0-10); BASOPHIL 2 % (0-2); EOSINOPHIL 1 % (0-4); LYMPHOCYTE 10 % (20.0-51.0); METAMYELOCYTE 2 % (0-0); NEUTROPHILS 78 % (42.0-75.2); PLATELET ESTIMATE INCREASED (NORMAL)
[2021-04-08 08:07] LABS: ANISOCYTOSIS 1+; POTASSIUM 2.7 mmol/L (3.4-5.0)
[2021-04-08 08:09] LABS: HYPOCHROMIA 1+
--- NOTE | 2021-04-08 08:58 | NUR ---
Patient resting in recliner, call light in reach and alarm set. Patient took her first dose of Potassium replacement. Provided education on potassium replacement to patient. She voiced understanding. She is awaiting her first therapy this morning. Will continue to monitor.
--- NOTE | 2021-04-08 09:55 | NUR ---
Welcomed pt to Rehab unit. Explained the rehab process & goals. Complete SW assessment w/ pt. She is alert & oriented & able to communicate her needs & wants. She does wear glasses, no issues w/ hearing, & has upper & lower dentures. She lives w/ her , who has early stages of dementia & needs supervision in a 1 story home w/ no steps to enter. There is 1 step between the kitchen & living room & kitchen & laundry room. The bathroom has a tub/shower combo w/ curtain, grab bars, & hand held shower head. The toliet is standard height. Pt reports she walks w/ a s/cane, independent w/ her self care, cooking, laundry, shopping, drove, medication management, & finance management. She has her own s/cane & shower chair. Pharmacy: [facility] in [place] & reports she has no concerns or issues w/ affording her medications. PCP: Dr. Lock. She does have DPOA paperwork, which the hospital should have on file. Pt had no questions/concerns at this time about her rehab stay. SW will continue to follow for support & d/c planning.
--- NOTE | 2021-04-08 10:18 | NUR ---
Follow-up visit; Mirella thanked School Speech Language Pathologist for looking in on her and continuing to keep her in School Speech Language Pathologist's prayers. School Speech Language Pathologist offered encouragement and God's blessings.
[2021-04-08 17:02] VITALS: BP 134/60; PULSE 88; TEMP 99.2
--- NOTE | 2021-04-08 19:23 | NUR ---
RECEIVED CHANGE OF SHIFT REPORT FROM DAY SHIFT NURSE. BED ALARM ON WHEN IN BED.
--- NOTE | 2021-04-08 19:40 | NUR ---
DENIES ANY NEEDS OR CONCERNS AT THIS TIME. BED ALARM ON WHEN IN BED. OXYGEN ON PER NC AT THIS TIME.
--- NOTE | 2021-04-08 19:53 | NUR ---
Patient attended all therapies this shift. She reported some back pain and was given prn pain meds with good effect. She had an incontinent episode of black stool and she was able to clean herself up with set up only. Patient tolerated diet well this shift. She was seen by Dr. Acuna, see new orders in EMR. Patient was placed on pottasium replacement protocol this morning due to low Pottasium level of 2.7 this morning. She will be getting another Pottasium lab drawn scheduled for tomorrow. Patient's daughter stopped by to visit today for a short period of time. This nurse reported off to night nurse.
[2021-04-09 04:05] VITALS: BP 183/79; PULSE 71; TEMP 97.8
--- NOTE | 2021-04-09 07:00 | NUR ---
resting in bed, bedside shift report received from LUDIN Mack
--- NOTE | 2021-04-09 07:08 | NUR ---
CHANGE OF SHIFT REPORT GIVEN TO DAY SHIFT NURSE, YING NOLAND.
--- NOTE | 2021-04-09 08:45 | NUR ---
assisted up and into bathroom, voided and had large bowel movement, dressed and ready for therapy, full assessment completed, see interventions for further info, denies needs
[2021-04-09 10:00] VITALS: BP 122/59; PULSE 86
--- NOTE | 2021-04-09 11:30 | NUR ---
returned to room from group therapy, sitting up in chair and waiting for lunch, denies needs
--- NOTE | 2021-04-09 11:45 | NUR ---
Spoke w/ pt about scheduling a pt/family meeting tomorrow, 04/10/21, to discuss how she has been doing, any concerns, recommendations, & to give her family the opportunity to ask questions. Pt thought that would be fine & asked that SW contact her daughter, Elma.
--- NOTE | 2021-04-09 13:04 | NUR ---
physical therapy in to work with patient
--- NOTE | 2021-04-09 13:34 | NUR ---
Contacted pt's daughter, Elma, about scheduling for a pt/family meeting tomorrow, 04/10/21, at 1:15 pm. She stated she would be there in person & that we would include pt's daughters & step-daughter. She did inquire about home health services & who sets this up. Told her that SW would help initiate that for them.
--- NOTE | 2021-04-09 13:49 | NUR ---
Admission QIM scores were reviewed by the team. Code of 4 chosen for oral hygiene was determined by team discussion to be the most usual performance before interventions for this patient during the assessment period. Code of 3 chosen for toilet hygiene was determined by team discussion to be the most usual performance for this patient during the assessment period. Code of 3 chosen for toileting transfers was determined by team discussion to be the most usual performance for this patient during the assessment period. Code of 4 chosen for upper body dressing was determined by team discussion to be the most usual performance for this patient during the assessment period. Code of 4 chosen for lower body dressing was determined by team discussion to be the most usual performance for this patient during the assessment period. Code of 4 chosen for putting on/taking off footwear was determined by team discussion to be the most usual performance for this patient during the assessment period. Code of 3 for sit to stand was determined by team discussion to be the most usual performance for this patient during the assessment period. Code of 3 for chair/bed to chair transfers was determined by team discussion to be the most usual performance for this patient during the assessment period.--Cookie Hammond,
[2021-04-09 17:42] VITALS: BP 111/44; PULSE 86; TEMP 98.9
--- NOTE | 2021-04-09 18:52 | NUR ---
RECEIVED CHANGE OF SHIFT REPORT FROM DAY SHIFT NURSE.
--- NOTE | 2021-04-09 20:00 | NUR ---
DENIES CHEST PAIN/SOA/NAUSEA AT THIS TIME. OXYGEN CONTINUES PER NASAL CANNULA. REPORTS WILL TAKE TYLENOL WITH HS MEDS, REPORTS HAS SOME ACROSS LOW BACK DISCOMFORT. BED ALARM ON WHEN IN BED. DENIES ANY OTHER NEEDS AT THIS TIME.
[2021-04-10 03:34] VITALS: BP 180/74; PULSE 81; TEMP 98.1
[2021-04-10 05:44] VITALS: BP 170/70; PULSE 66; TEMP 98.5
--- NOTE | 2021-04-10 06:30 | NUR ---
Report received from LUDIN Armenta. Patient is sleeping. Call light and bedside table are within reach. Will continue to monitor patient throughout shift.
--- NOTE | 2021-04-10 07:01 | NUR ---
CHANGE OF SHIFT REPORT GIVEN TO DAY SHIFT NURSE, MARTA NOLAND.
--- NOTE | 2021-04-10 13:15 | NUR ---
Conducted family meeting w/ pt, daughter, & via phone 2 daughters & step daughter. Also presents was PT, OT, & [employer] Al[employer] Specialist/SW. Team explained how Pat has been doing very well & has made good progress. Informed them of d/c for 04/12/21 w/ recomendation of home health PT/OT, which everyone was pleased to here. There were some questions from the family which the team answered. Everyone was pleased w/ pt's progress & thankful for the help. Following the meeting, SW gave them the handout from the Team Conference & a list of home health agencies in the [facility]. Explained that once they decide which home health agency, they can let SW know & SW will set it up.
--- NOTE | 2021-04-10 14:27 | NUR ---
Patient has completed all therapies today and is resting comfortably in recliner. Call light and bedside table are within reach. Will continue to monitor throughout shift.
[2021-04-10 15:44] VITALS: BP 100/51; PULSE 77; TEMP 98.4
[2021-04-10 20:32] VITALS: BP 121/56; PULSE 81
--- NOTE | 2021-04-10 21:00 | NUR ---
PT MOD I IN ROOM. USING WALKER. SEE MAR FOR TYLENOL GIVEN FOR BACK ACHE.
[2021-04-11 04:37] VITALS: BP 127/57; PULSE 67; TEMP 98.7
--- NOTE | 2021-04-11 06:30 | NUR ---
Report received from LUDIN Ceron. Patient is sleeping in bed. Call light and bedside table are within reach. Will continue to monitor patient throughout shift.
--- NOTE | 2021-04-11 10:29 | NUR ---
Visited w/ pt about d/c plans for tomorrow, 04/12/21. She stated she feels she is doing very well & thankful to be able to get up & take herself to the bathroom. Inquired if she had decided on a home health agency & thought her daughters had decided on [facility] but not sure & suggested SW contact her daughter Elma. Also talked to her about the r/walker & pt wants to use [facility] since that is where she gets her oxygen. Pt had no further questions/concerns about d/c tomorrow. Attempted to contact Elma regarding the home health agency preference. She was not available so left her a message to call SW back.
--- NOTE | 2021-04-11 10:44 | NUR ---
Contacted [facility] & spoke w/ Octavia. Ordered a walker w/ wheels for pt & informed her of the d/c for tomorrow, 04/12/21. Faxed the script & H&P.
--- NOTE | 2021-04-11 14:13 | NUR ---
Was informed pt's daughter, Elma, is here & requesting to speak w/ SW. Arrived & inquired about the home health choice & was told [facility]. Told them that SW will get this set up for them. Also reviewed the Medicare rights form w/ them & pt signed the form. Contacted [facility] & spoke w/ Vanessa. Referral was made & informed of d/c for tomorrow, 04/12/21. Faxed referral information.
[2021-04-11 15:08] VITALS: BP 127/56; PULSE 86; TEMP 99.2
[2021-04-11] MEDS ORDERED: PRINIVIL5 MG PO (16:40)
--- NOTE | 2021-04-11 19:46 | NUR ---
PT RESTING IN RECLINER. MOD I IN ROOM WITH WALKER. PT RELATES SHE FEEL SHE IS SAFE WITH THIS STATUS. ENC TO CALL FOR ASSIST IF NEEDED. CALL LIGHT IN REACH.
[2021-04-12 05:02] VITALS: BP 148/59; PULSE 74; TEMP 98.8
--- NOTE | 2021-04-12 08:00 | NUR ---
Patient independent in the room. A&Ox4. VSS. Denies pain and discomfort. Is going home today, was talking to family on the phone when the nurse walked in. No further needs expressed from the patient. Call light within reach
--- NOTE | 2021-04-12 09:33 | NUR ---
Visited w/ pt about d/c plans today, 04/12/21. She stated she feels she is ready to go home. Told her that home health has been set up w/ [facility] & they should call in a day or 2. Also told her the walker was ordered from [facility] in [place]. She did not have any other questions or concerns about d/c today.
--- NOTE | 2021-04-12 10:43 | NUR ---
Discharge paperwork reviewed with the patient. Patient verbalized an understanding to follow doctors orders. Patient is packing up her belongings and is waiting for her daughter. No further needs expressed. Call light within reach
--- NOTE | 2021-04-12 12:04 | NUR ---
Patient assisted to vehicle for discharge. Personal belongings and discharge paperwork with the patient. No further needs expressed
== END 2021-04-12 12:04 | disposition home health service (06) | DRG 193 ==
PROVIDERS: ADMIT Internal Medicine
DX: J18.9 Pneumonia, unspecified organism (principal); J96.21 Acute and chronic respiratory failure with hypoxia; J44.0 Chronic obstructive pulmonary disease with (acute) lower respiratory infection; J44.1 Chronic obstructive pulmonary disease with (acute) exacerbation; N17.9 Acute kidney failure, unspecified; E66.9 Obesity, unspecified; D64.9 Anemia, unspecified; K52.9 Noninfective gastroenteritis and colitis, unspecified; E87.6 Hypokalemia; I10 Essential (primary) hypertension; R53.81 Other malaise; Z68.34 Body mass index [BMI] 34.0-34.9, adult; Z79.52 Long term (current) use of systemic steroids; Z90.710 Acquired absence of both cervix and uterus; Z90.49 Acquired absence of other specified parts of digestive tract; Z87.891 Personal history of nicotine dependence; Z88.8 Allergy status to other drugs, medicaments and biological substances; Z88.1 Allergy status to other antibiotic agents
CPT/HCPCS: 99222-AI; 99231-AI; 99232-AI; 99239; J1650; J7512

== ENCOUNTER → 2021-05-22 | Outpatient (CLI) | payer MEDICARE, BC ==
[~2021-05-22] MED LIST changes: +PRINIVIL5 MG PO; +SINGULAIR 110 MG/TAB PO
== END ==
LOC: COL.RAD 12:38
DX: J18.9 Pneumonia, unspecified organism (principal)

== ENCOUNTER → 2022-06-05 | Outpatient (CLI) | payer MEDICARE, BC | LOC: MC.RAD 08:55 | DX: N63.11 Unspecified lump in the right breast, upper outer quadrant (principal) ==

== ENCOUNTER → 2024-07-11 | Outpatient (CLI) | payer MEDICARE, BC ==
[~2024-07-11] MED LIST changes: +NYSTATIN POWDER30 GM TOP; +ROXICODONE 55 MG/TAB PO
== END ==
LOC: MC.RAD 09:04
DX: Z12.31 Encounter for screening mammogram for malignant neoplasm of breast (principal); N64.89 Other specified disorders of breast; C50.411 Malignant neoplasm of upper-outer quadrant of right female breast